=== PATIENT | female | born 1975 | race Caucasian/White ===

== ENCOUNTER 2016-11-05 08:25 | Emergency (ER) | payer MEDICAID ==
[~2016-11-05] VITALS: Ht 154.9 cm; Wt 84.1 kg
[2016-11-05 08:28] VITALS: BP 152/92
--- NOTE | 2016-11-05 08:38 | NUR ---
Patient ambulated to bed 7.
--- NOTE | 2016-11-05 08:47 | NUR ---
PATIENT PRESENTS TO ED WITH REDNESS AND RASH TO LOWER ABD BELOW THE ABD SKIN FOLD AND UNDER LEFT BREAST . PT STATES RASH HAS BEEN THERE FOR 2 WEEKS . DENIES N/V/D; SKIN IS PINK/WARM/DRY; AAOX4 WITH EVEN AND STEADY GAIT; PT DENIES ANY FEVER, CP, SOB, OR COUGH AT THIS TIME; PATIENT STATES PAIN OF 0/10 AT THIS TIME; VSS; PATIENT POSITIONED FOR COMFORT; HOB ELEVATED; FAMILY AT BEDSIDE
--- NOTE | 2016-11-05 09:25 | NUR ---
Patient discharged with v/s stable. Written and verbal after care instructions given and explained. Patient alert, oriented and verbalized understanding of instructions. Ambulatory with steady gait. All questions addressed prior to discharge. ID band removed. Patient advised to follow up with PMD. Rx of LOTRIMIN AND DIFLUCAN given. Patient educated on indication of medication including possible reaction and side effects. Opportunity to ask questions provided and answered.
[2016-11-05 09:26] VITALS: BP 152/92
== END 2016-11-05 09:25 | disposition home or self-care (01) ==
LOC: MED 08:25
DX: B35.6 Tinea cruris (principal); R03.0 Elevated blood-pressure reading, without diagnosis of hypertension

== ENCOUNTER 2017-08-14 08:35 | Emergency (ER) | payer MEDICAID | END 2017-08-14 09:18 | disposition home or self-care (01) | LOC: MED 08:35 | DX: L03.312 Cellulitis of back [any part except buttock and flank] (principal) | CPT/HCPCS: 90471; 90715; 99283 ==

== ENCOUNTER 2017-08-16 11:53 | Emergency (ER) | payer MEDICAID ==
[~2017-08-16] VITALS: Ht 160 cm; Wt 68.0 kg
[2017-08-16 12:13] VITALS: BP 165/119
[2017-08-16] MEDS ORDERED: LIDOCAINE 1% 500 MG/50 ML VIAL INJ SCH (12:30)
[2017-08-16] MEDS ORDERED: LIDOCAINE 2% 1000 MG/50 ML VIAL INJ ONE (13:12)
[2017-08-16 13:53] VITALS: BP 170/113
== END 2017-08-16 13:53 | disposition home or self-care (01) ==
LOC: MED 11:53
DX: L02.212 Cutaneous abscess of back [any part, except buttock and flank] (principal)
CPT/HCPCS: 10060; 81002; 81025; 99283; J2001

== ENCOUNTER 2018-10-02 10:37 | Emergency (ER) | payer MEDICAID ==
[~2018-10-02] VITALS: Ht 157.5 cm; Wt 82.6 kg
[2018-10-02 10:43] VITALS: BP 221/143
--- NOTE | 2018-10-02 10:45 | NUR ---
43 y f bib self with c/o 8/10 constant "pressure" chest pain x yesterday radiating to bl arms. Patient sts cp is provoked by walking. Patient also reports of sob and dizziness. Pulse ox=88% on ra. shortness of breath, lung sounds clear. Clear speech with full sentences. Patient denies any recent injury to chest. Skin is warm/dry/color apprioriate for ethnicity. bed is low, locked, bed rail x 1, patient in gown, ermd notified of patients condition [id number] rx-patient denies
--- NOTE | 2018-10-02 10:50 | NUR ---
dr mccord at bedside
--- NOTE | 2018-10-02 10:50 | NUR ---
pt to rm 11. er md mccord made aware of pt status. gave report to Jumana lawson, by bedside.
[2018-10-02] MEDS ORDERED: ASPIRIN 81 MG TAB.CHEW PO ONE (11:00)
[2018-10-02] MEDS ORDERED: KETOROLAC 30 MG/ML VIAL IVP ONE (11:00)
[2018-10-02] MEDS ORDERED: NACL 0.9% 1,000 ML IV ONE ×2 (11:00→13:30)
[2018-10-02 11:18] LABS: BASOPHILS # (AUTO) 0.1 K/uL (0.00-0.22); BASOPHILS % (AUTO) 0.7 % (0.0-2.0); EOSINOPHILS # (AUTO) 0.3 K/uL (0-0.4); EOSINOPHILS % (AUTO) 3.6 % (0.0-4.0); HEMATOCRIT 44.7 % (36-48); HEMOGLOBIN 14.9 g/dL (12.0-16.0); LYMPHOCYTES # (AUTO) 2.2 K/uL (2.5-16.5); LYMPHOCYTES % (AUTO) 31.2 % (20.5-51.1); MEAN CORPUSCULAR HEMOGLOBIN 30 pg (27-31); MEAN CORPUSCULAR HGB CONC 33 g/dL (33-37); MEAN CORPUSCULAR VOLUME 88.6 fL (80-94); MONOCYTES # (AUTO) 0.4 K/uL (0.8-1.0); MONOCYTES % (AUTO) 5.6 % (1.7-9.3); NEUTROPHILS # (AUTO) 4.1 K/uL (1.8-7.7); NEUTROPHILS % (AUTO) 58.9 % (42.2-75.2); PLATELET COUNT (AUTO) 207 K/uL (140-450); RED BLOOD CELL COUNT(AUTO) 5.05 MIL/uL (4.20-5.40); RED CELL DISTRIBUTION WIDTH 12.9 % (11.6-13.7)
--- NOTE | 2018-10-02 11:18 | NUR ---
PATIENTS BP IS 192/126, NOTIFIED DR BANGURA
--- NOTE | 2018-10-02 11:18 | NUR ---
Halle mccray in [facility] - 10/02/18 at 1156 by [email or web address] PATIENTS BP IS 192/126, NOTIFIED DR BANGURA
--- NOTE | 2018-10-02 11:20 | NUR ---
RD AT BEDSIDE
[2018-10-02 11:39] LABS: ALBUMIN 3.5 g/dL (3.4-5.0); ANION GAP 16.2 (8-16); CARBON DIOXIDE 24.2 mmol/L (21-32); CREATININE 0.9 mg/dL (0.6-1.3); POTASSIUM 3.4 mmol/L (3.5-5.1); TOTAL BILIRUBIN 0.3 mg/dL (0.0-1.0)
--- NOTE | 2018-10-02 11:44 | NUR ---
BP IS 183/117, ERMD NOTIFIED
--- NOTE | 2018-10-02 12:40 | NUR ---
Halle mccray in [facility] - 10/02/[address] BANGURA AT [facility].
--- NOTE | 2018-10-02 12:41 | NUR ---
DR BANGURA AT BEDSIDE
--- NOTE | 2018-10-02 15:12 | NUR ---
DR BANGURA NOTIFIED OF PATIENTS VITAL SIGNS
[2018-10-02 15:38] VITALS: BP 177/105
== END 2018-10-02 15:39 | disposition home or self-care (01) ==
LOC: MED 10:37
DX: R07.89 Other chest pain (principal); R06.02 Shortness of breath; I10 Essential (primary) hypertension
CPT/HCPCS: 36415; 71045; 80053; 83880; 84484; 85025; 85379; 93005; 96374; 99284; J1885; J7030; Q0092

== ENCOUNTER 2022-04-05 09:17 | Emergency (ER) | payer MEDICAID ==
[~2022-04-05] VITALS: Ht 157.5 cm; Wt 81.6 kg
[2022-04-05 09:23] VITALS: BP 177/118
[2022-04-05] MEDS ORDERED: KETOROLAC 30 MG/ML VIAL IM ONE (10:00)
[2022-04-05] MEDS ORDERED: NAPR-1704 PO (10:43)
[2022-04-05 11:10] VITALS: BP 177/118
== END 2022-04-05 11:11 | disposition home or self-care (01) ==
LOC: MED 09:17
DX: S80.02XA Contusion of left knee, initial encounter (principal); E11.9 Type 2 diabetes mellitus without complications; I10 Essential (primary) hypertension; Z79.899 Other long term (current) drug therapy; Z98.890 Other specified postprocedural states; W01.0XXA Fall on same level from slipping, tripping and stumbling without subsequent striking against object, initial encounter; Y93.89 Activity, other specified; Y92.512 Supermarket, store or market as the place of occurrence of the external cause; Y99.8 Other external cause status
CPT/HCPCS: 73562; 96372; 99283; J1885